=== PATIENT | male | born 1990 | race Two or more races ===

== ENCOUNTER 2016-06-14 16:47 | Emergency (ER) | payer OTHER ==
[~2016-06-14] VITALS: Ht 170.2 cm; Wt 62.6 kg
[2016-06-14] MEDS ORDERED: SODIUM CHLORIDE 0.9% 1,000ML IVBOLUS ONE (17:30)
[2016-06-14] MEDS ORDERED: SODIUM CHLORIDE FLUSH 10ML SYR IVF ONE (17:30)
[2016-06-14 17:31] LABS: BLOOD UREA NITROGEN 15 mg/dL (7-18)
[2016-06-14] MEDS ORDERED: GABA300C10 PO (17:34)
[2016-06-14 17:35] LABS: ASPARTATE AMINO TRANSFERASE 32 U/L (15-37)
[2016-06-14] MEDS ORDERED: KETOROLAC 30 MG/1 ML IVPush ONE (18:00)
[2016-06-14] MEDS ORDERED: CEFTRIAXONE 250 MG IM ONE (18:00)
[2016-06-14] MEDS ORDERED: ONDANSETRON 2MG/ML, 2ML IVPush ONE (18:00)
[2016-06-14] MEDS ORDERED: AZITHROMYCIN 500 MG TABLET PO ONE (18:00)
[2016-06-14] MEDS ORDERED: CEFTRIAXONE 250 MG ONE (18:03)
[2016-06-14] MEDS ORDERED: KETOROLAC 30 MG/1 ML ONE (18:03)
[2016-06-14] MEDS ORDERED: AZITHROMYCIN 250 MG TABLET ONE (18:04)
[2016-06-14] MEDS ORDERED: ONDANSETRON 2MG/ML, 2ML ONE (18:04)
[2016-06-14 18:28] LABS: HIV 1&2 ANTIBODY SCREEN Nonreactive (Nonreactive); HIV-1 p24 ANTIGEN Nonreactive (Nonreactive)
[2016-06-14 21:02] VITALS: BP 130/92
== END 2016-06-14 21:07 | disposition home or self-care (01) ==
LOC: ED 21:06
DX: R51 Headache (principal); J32.9 Chronic sinusitis, unspecified; M79.1 Myalgia; D72.829 Elevated white blood cell count, unspecified; F17.200 Nicotine dependence, unspecified, uncomplicated
CPT/HCPCS: 36415; 70450; 80053; 81003; 82550; 83690; 85025; 86703; 87899; 96372; 96374; 96375; 99285; J0696; J1885; J2405; J7030; G0435